=== PATIENT | male | born 1985 | race Hispanic/Latino ===

== ENCOUNTER 2018-05-06 20:12 | Inpatient (IN) | payer MEDICAID ==
[2018-05-06 20:26] VITALS: BMI 25.8
--- NOTE | 2018-05-06 20:56 | ED PDOC ---
HPI: Psych/Substance Abuse Time Seen by Provider: 05/06/18 20:42 Chief Complaint (Nursing): Substance Abuse Chief Complaint (Provider): psych eval History Per: Patient History/Exam Limitations: no limitations Onset/Duration Of Symptoms: Hrs (1.5) Suicide/Self Injury Attempted (Context): Ingestion Additional Complaint(s): 32 y/o male self-presents to ED for psychiatric evaluation. Patient states he has been feeling more depressed due to his current situation and tonight tried to commit suicide; states he took two 100mg Trazodone tablets at 19:30 and then was stopped by his friend before he could take more. Admits to previous attempts in past. Denies homicidal ideations, hallucinations, acute physical complaints. Noncompliant with psych meds. Past Medical History Reviewed: Historical Data, Nursing Documentation, Vital Signs Vital Signs: Last Vital Signs Temp 98.3 F 05/06/18 20:27 Pulse 82 05/06/18 20:27 Resp 19 05/06/18 20:27 BP 128/79 05/06/18 20:27 Pulse Ox 99 05/06/18 20:27 - Medical History PMH: Depression - Family History Family History: States: No Known Family Hx - Living Arrangements Living Arrangements: Alone - Social History Current smoker - smoking cessation education provided: Yes SMOKER/PACKS PER DAY:: 1 Alcohol: None Drugs: Prescription medications (suboxone) - Home Medications Home Medications: Ambulatory Orders Medication Instructions Recorded Sertraline [Zoloft] 1.5 tab PO DAILY 05/06/18 Trazodone HCl 100 mg PO HS 05/06/18 hydrOXYzine Pamoate [Vistaril] 50 mg PO DAILY 05/06/18 hydrOXYzine Pamoate [Vistaril] 50 mg PO Q8 PRN cap 05/13/18 - Allergies Allergies/Adverse Reactions: Allergies Allergy/AdvReac Type Severity Reaction Status Date / Time Iodine and Iodide Containing Allergy ANAPHYLAXIS Verified 05/06/18 20:35 Produc Review of Systems ROS Statement: Except As Marked, All Systems Reviewed And Found Negative Psych: Positive for: Depression, Suicidal ideation Physical Exam - Reviewed Nursing Documentation Reviewed: Yes Vital Signs Reviewed: Yes - Physical Exam Appears: Positive for: Well, Non-toxic, No Acute Distress Head Exam: Positive for: ATRAUMATIC, NORMAL INSPECTION, NORMOCEPHALIC Skin: Positive for: Normal Color Eye Exam: Positive for: Normal appearance ENT: Positive for: Normal ENT Inspection Cardiovascular/Chest: Positive for: Regular Rate, Rhythm Respiratory: Positive for: Normal Breath Sounds Gastrointestinal/Abdominal: Positive for: Normal Exam Back: Positive for: Normal Inspection Extremity: Positive for: Normal ROM Neurologic/Psych: Positive for: Alert, Oriented (x3) - Laboratory Results Result Diagrams: 05/06/18 21:45 05/08/18 06:10 - ECG ECG: Positive for: Viewed By Me (reviewed by ED attending) ECG Rhythm: Positive for: Sinus Rhythm, Premature Ventricular Contraction O2 Sat by Pulse Oximetry: 99 - Radiology X-Ray: Viewed By Me X-Ray Interpretation: No Acute Disease - Progress ED Course And Treament: 1:1, labs, crisis eval, poison control consult, ekg, chest xray RN spoke with Gregorio from poison control; who recommends repeat 4 hour ekg and LFTs and mag level. Supportive care as needed On re-eval, patient remains awake, resting comfortably; denies acute medical complaints 4 hour repeat EKG shows no changes. 4 hour repeat LFT, mag level show no changes. Patient evaluated by office worker; to be admitted to [facility] as per Dr. Rabago Medical Decision Making Medical Decision Making: Patient medically stable for psych admission Disposition - Clinical Impression Clinical Impression: Depression, Heroin abuse - Patient ED Disposition Is Patient to be Admitted: Yes - Disposition Disposition Time: 04:15 Condition: STABLE
[2018-05-06 21:50] LABS: BASO % 0.5 % (0.0-2.0); EOS # 0.3 K/uL (0.0-0.7); EOS % 3.5 % (0.0-4.0); HEMOGLOBIN 12.6 g/dL (12.0-18.0); LYMPH # 2.3 K/uL (1.0-4.3); LYMPH % 25.6 % (20.0-40.0); MEAN CELL VOLUME 92.4 fl (80.0-94.0); MEAN CORPUSCULAR HEMOGLOBIN 31.8 pg (27.0-31.0); MEAN CORPUSCULAR HGB CONC 34.5 g/dL (33.0-37.0); MEAN PLATELET VOLUME 8.9 fl (7.2-11.7); MONO # 0.8 K/uL (0.0-0.8); MONO % 8.7 % (0.0-10.0); NEUT # 5.5 K/uL (1.8-7.0); NEUT % 61.7 % (50.0-75.0); NRBC % 0.2 % (0.0-0.0); RBC 3.94 Mil/uL (4.40-5.90); RED CELL DISTRIBUTION WIDTH 14.4 % (11.5-14.5); WHITE BLOOD COUNT 8.8 K/uL (4.8-10.8)
[2018-05-06 22:18] LABS: ALB/GLOB RATIO 1.3 (1.0-2.1); ALBUMIN 3.9 g/dL (3.5-5.0); ALT/SGPT 105 U/L (21-72); AST/SGOT 74 U/L (17-59); BLOOD UREA NITROGEN 18 mg/dl (9-20); CALCIUM 9.4 mg/dL (8.4-10.2); GFR AFRICAN-AMERICAN > 60; GFR NON-AFRICAN AMERICAN > 60
[2018-05-06 22:23] LABS: ACETAMINOPHEN < 10.0 ug/ml (10.0-30.0); SALICYLATE < 1.0 mg/dl
[2018-05-06 23:46] VITALS: O2SAT 99
[2018-05-07 02:06] LABS: ALBUMIN 3.8 g/dL (3.5-5.0)
[2018-05-07 02:17] LABS: ALB/GLOB RATIO 1.3 (1.0-2.1)
[2018-05-07 04:21] LABS: URINE BILIRUBIN NEGATIVE (NEGATIVE); URINE BLOOD NEGATIVE (NEGATIVE); URINE CLARITY CLEAR (Clear); URINE COLOR STRAW (YELLOW); URINE GLUCOSE (UA) NEG (Normal); URINE LEUKOCYTE ESTERASE NEG Leu/uL (Negative); URINE PROTEIN NEGATIVE (NEGATIVE); URINE UROBILINOGEN 0.2-1.0 mg/dL (0.2-1.0)
[2018-05-07 04:41] LABS: BARBITURATES, UR NEGATIVE (NEGATIVE)
[2018-05-07 05:08] LABS: BENZODIAZEPINES, UR NEGATIVE (NEGATIVE); OPIATES, UR NEGATIVE (NEGATIVE); PHENCYCLIDINE, UR NEGATIVE (NEGATIVE)
[2018-05-07] MEDS ORDERED: Alum-Mag Hydrox-Simethicone Susp (30 mL) PO PRN (05:49)
[2018-05-07] MEDS ORDERED: Magnesium Hydroxide Susp 30 ml UD PO PRN (05:49)
[2018-05-07] MEDS ORDERED: DiphenhydrAMINE 50 mg/ml Inj IM PRN (05:49)
--- NOTE | 2018-05-07 06:11 | PCM.BM ---
<Joanna Mckeon - Last Filed: 05/07/18 06:09> Treatment Plan Problems - Problems identified on initial assessmt Hopelessness/Helplessness Date Initiated: 05/07/18 Time Initiated: 06:09 Assessment reference: NA Status: Active Feeling of Worthlessness Date Initiated: 05/07/18 Time Initiated: 06:10 Assessment reference: NA Status: Active Treatment assets and liabiliti Patient Assests: cooperative, ADL independent, physically healthy, negotiates basic needs, cognitively intact Patient Liabilities: live alone, poor support system, substance abuse - Milieu Protocol Maintain good personal hygiene: daily Encourage regular showers, daily Remind patient to perform daily oral care, daily Assist patient to perform ADL's Conduct patient checks and document Observation sheet: Q15 minutes Maintain personal safety: every shift Educate patient to report safety concerns to staff, every shift Monitor environment for contraband/sharps Medication safety: Monitor for expected outcome, potential side effects: every shift, Assess barriers to learning: every shift, Assess readiness for medication education: every shift <Eli Rabago - Last Filed: 05/07/18 08:40> - Diagnosis (1) Major depressive disorder Status: Acute Interventions: Medication management, Individual and group therapy, Psychoeducation 05/07/18 08:41 (2) Opioid use disorder Status: Acute Interventions: Medication management, Individual and group therapy, Psychoeducation 05/07/18 08:41 <Anoop Newman - Last Filed: 05/08/18 07:17> Family Contact Family involvement: Famliy/SO not involved Family contact: Patient declines to allow family contact at present Family contact name: Pt denied. Family contacted how many times per week?: 0 - Goals for Treatment Patient goals for treatment: Pt did not offer any goals at this time, except to get through the withdrawal of his Suboxone at this time. Discharge/Continuing Care - Education Needs Education Needs: Patient Medication, Patient Diagnosis/Disease Process, Patient Coping Skills, Patient Placement options, Patient Community resources, Patient Aftercare Safety Plan - Discharge Discharge Criteria: Tolerates medication w/o severe side effects, Free of Suicidal thoughts, Free of agitation, Normal sleep pattern, No longer exhibiting s/s of withdrawal, Reduction of target symptoms Discharge to:: Retirement - Treatment Team Participation Patient/Family/SO Statement: 07/19/18 07:17 Pt refused to attend treatment team stating that he was "too weak to walk." Discussed with Family/SO: No Was Patient/Family/SO present at Treatment Team Meeting: Yes
--- NOTE | 2018-05-07 08:47 | PCM.PSYCH ---
Initial Psychiatric Evaluation - Initial Psychiatric Evaluation Type of Admission: Voluntary Legal Status: Capacity Chief Complaint (in patient's own words): "I tried to kill myself." Patient's Reaction to Hospitalization: HPI: 32 yo male w/ h/o depression and opioid use disorder, recently treated with Suboxone, presents s/p attempted to overdose on Trazodone pills, states he took 2 pills but was stopped by a friend from taking more. He continues to report feeling depressed and hopeless w/ active suicidal ideation to kill himself by overdose. +Sleep/appetite disturbances. PPHx: H/o previous psychiatric admission at [facility], was prescribed Zoloft , Trazodone and Vistaril at that time; h/o outpatient psychiatric treatment, but can not recall the psychiatrist's name (Dr. Horowitz?); Last used heroin 1 month ago, recently prescribed Suboxone PMHx: Denies acute/chronic medical issues ALL: Iodine + Iodide containing products (causes seizures) FHx: Father w/ h/o depression SHx: Homeless, unemployed, smokes 1ppd, h/o opioid use disorder; no etoh Current Medications: Active Medications Generic Name Dose Route Start Last Admin Trade Name Freq PRN Reason Stop Dose Admin Acetaminophen 650 mg 05/07/18 05:49 Tylenol 325mg Tab PO Q4 PRN 4-7 pain Al Hydrox/Mg Hydrox/Simethicone 30 ml 05/07/18 05:49 Maalox Plus 30 Ml PO Q4 PRN Dyspepsia Clonidine HCl 0.1 mg 05/07/18 09:00 Catapres PO 05/10/18 01:00 Q8 THOMAS Diphenhydramine HCl 50 mg 05/07/18 05:49 Benadryl IM Q6 PRN Extrapyramidal S/S Unable PO Diphenhydramine HCl 50 mg 05/07/18 05:49 Benadryl PO Q6 PRN Extrapyramidal Symptoms Diphenhydramine HCl 50 mg 05/07/18 05:49 Benadryl PO HS PRN Sleep Haloperidol 5 mg 05/07/18 05:49 Haldol PO Q4 PRN Agitation Haloperidol Lactate 5 mg 05/07/18 05:49 Haldol IM Q4 PRN Agitation, Unable to Take PO Ibuprofen 400 mg 05/07/18 08:40 Motrin Tab PO Q6 PRN Pain, moderate (4-7) Loperamide HCl 2 mg 05/07/18 08:25 Imodium PO QID PRN Diarrhea Lorazepam 1 mg 05/07/18 05:49 Ativan IM Q8 PRN Agitation Lorazepam 1 mg 05/07/18 05:49 Ativan PO Q8 PRN Agitation Magnesium Hydroxide 30 ml 05/07/18 05:49 Milk Of Magnesia PO HS PRN Constipation Nicotine 1 patch 05/07/18 09:00 Nicoderm Cq TD DAILY [facility] Ondansetron HCl 4 mg 05/07/18 08:25 Zofran Tab PO Q4 PRN Nausea/Vomiting Sertraline HCl 100 mg 05/07/18 09:00 Zoloft PO DAILY [facility] Past Psychiatric History - Past Psychiatric History Previous Treatment History: Inpatient Pertinent Medical Hx (Current Medical&Sleep Prob, Allergies): Allergies Allergy/AdvReac Type Severity Reaction Status Date / Time Iodine and Iodide Containing Allergy ANAPHYLAXIS Verified 05/06/18 20:35 Produc Sertraline [Zoloft] 1.5 tab PO DAILY 05/06/18 Trazodone HCl [Trazodone HCl] 100 mg PO HS 05/06/18 hydrOXYzine Pamoate [Vistaril] 50 mg PO DAILY 05/06/18 Review of Systems - Psychiatric Psychiatric: As Per HPI, Abnormal Sleep Pattern, Anhedonia, Anxiety, Change in Appetite, Depression, Difficulty Concentrating, Hopelessness, Mood Swings, Suicidal Ideation Mental Status Examination - Personal Presentation Personal Presentation: Looks stated age - Affect Affect: Constricted - Motor Activity Motor Activity: Calm - Reliability in Providing Information Reliability in Providing Information: Fair - Speech Speech: Organized - Mood Mood: Depressed - Formal Thought Process Formal Thought Process: No Impairment - Hallucinations/Delusions Additional comments: NO AH/VH/paranoia/delusions - Obsessions/Compulsions Obsessions: No Compulsions: No - Cognitive Functions Orientation: Person, Place, Situation, Time Sensorium: Alert Attention/Concentration: Attentive Estimate of Intelligence: Average Judgement: Intact, as evidence by: Insight regarding need for hospitalization Memory: Recent intact, as evidence by: Ability to recall events of the day, Remote intact, as evidenced by: Abilit to recall sig. life events, Remote intact , as evidenced by: Ability to recall historical events - Risk Risk: Suicidal, Diminished functioning - Strength & Assets Inventory Strength & Assets Inventory: Cooperative - Limitations Limitations: Other (Homelessness; Poverty) DSM 5 DX - DSM 5 DSM 5 Diagnosis: Major Depressive Disorder; Opioid Use Disorder - Recommended/Plan of Treatment Treatment Recommendations and Plan of Treatment: Major Depressive Disorder; Opioid Use Disorder -Admit to psychiatry unit -Medicine consult -Individual and group therapy -Increase Zoloft to 100 mg PO Daily -Nicotine patch -PRNs for opioid withdrawal symptoms (Clonidine, Zofran, Ibuprofen, Ativan, Immodium) -Disposition planning Projected ELOS: 5-9 days Discharge Plan and Discharge Criteria: Discharge when patient is psychiatrically stable - Smoking Cessation Smoking Cessation Initiated: Yes
[2018-05-07 09:30] LABS: T4 5.43 ug/dl (5.5-11.0)
--- NOTE | 2018-05-07 11:28 | RAD ---
Date of service: 05/07/2018 HISTORY: admit COMPARISON: No prior. FINDINGS: LUNGS: No active pulmonary disease. PLEURA: No significant pleural effusion identified, no pneumothorax apparent. CARDIOVASCULAR: Normal. OSSEOUS STRUCTURES: No significant abnormalities. VISUALIZED UPPER ABDOMEN: Normal. OTHER FINDINGS: None. IMPRESSION: No active disease.
--- NOTE | 2018-05-07 17:25 | CP.PCM.CON ---
History of Present Illness - History of Present Illness History of Present Illness: Medical consult for psychiatric admission. CC: depression and suicidal attempt HPI: 32 yo WM no PMH here for depression, suicidal ideation and attempt now under management by psych. Overdose of trazadone. Denies cp, sob, fever, chills, abd pain. PMH: none PSH: none FH: none for medical issues, positive for dad depression Social history reviewed: smokes 1ppd, drugs abused opioids Heroin IV was on suboxone, denies alcohol Allergies: iodine Meds: none for medical issues. Review of Systems - Review of Systems All systems: reviewed and no additional remarkable complaints except Review of Systems: except HPI Past Patient History - Past Social History Smoking Status: Heavy Smoker > 10 Cigarettes Daily Alcohol: None Drugs: Prescription medications (suboxone) - CARDIAC Hx Cardiac Disorders: No - PULMONARY Hx Tuberculosis: No - NEUROLOGICAL HX Cerebrovascular Accident: No Hx Seizures: No - HEMATOLOGICAL/ONCOLOGICAL Hx Cancer: No Hx Human Immunodeficiency Virus (HIV): No - GENITOURINARY/GYNECOLOGICAL Hx Sexually Transmitted Disorders: No - PSYCHIATRIC Hx Substance Use: Yes - SURGICAL HISTORY Hx Musculoskeletal Surgery: Yes Meds Allergies/Adverse Reactions: Allergies Allergy/AdvReac Type Severity Reaction Status Date / Time Iodine and Iodide Containing Allergy ANAPHYLAXIS Verified 05/06/18 20:35 Produc - Medications Medications: Current Medications Acetaminophen (Tylenol 325mg Tab) 650 mg PO Q4 PRN PRN Reason: 4-7 pain Al Hydrox/Mg Hydrox/Simethicone (Maalox Plus 30 Ml) 30 ml PO Q4 PRN PRN Reason: Dyspepsia Clonidine HCl (Catapres) 0.1 mg PO Q8 THOMAS Stop: 05/10/18 01:00 Last Admin: 05/07/18 17:20 Dose: 0.1 mg Diphenhydramine HCl (Benadryl) 50 mg IM Q6 PRN PRN Reason: Extrapyramidal S/S Unable PO Diphenhydramine HCl (Benadryl) 50 mg PO Q6 PRN PRN Reason: Extrapyramidal Symptoms Diphenhydramine HCl (Benadryl) 50 mg PO HS PRN PRN Reason: Sleep Haloperidol (Haldol) 5 mg PO Q4 PRN PRN Reason: Agitation Haloperidol Lactate (Haldol) 5 mg IM Q4 PRN PRN Reason: Agitation, Unable to Take PO Ibuprofen (Motrin Tab) 400 mg PO Q6 PRN PRN Reason: Pain, moderate (4-7) Loperamide HCl (Imodium) 2 mg PO QID PRN PRN Reason: Diarrhea Lorazepam (Ativan) 1 mg IM Q8 PRN PRN Reason: Agitation Lorazepam (Ativan) 1 mg PO Q8 PRN PRN Reason: Agitation Last Admin: 05/07/18 14:01 Dose: 1 mg Magnesium Hydroxide (Milk Of Magnesia) 30 ml PO HS PRN PRN Reason: Constipation Nicotine (Nicoderm Cq) 1 patch TD DAILY [facility] Last Admin: 05/07/18 09:27 Dose: 1 patch Ondansetron HCl (Zofran Tab) 4 mg PO Q4 PRN PRN Reason: Nausea/Vomiting Sertraline HCl (Zoloft) 100 mg PO DAILY [facility] Last Admin: 05/07/18 09:28 Dose: 100 mg Physical Exam - Constitutional Appears: Well, Non-toxic, No Acute Distress - Head Exam Head Exam: ATRAUMATIC, NORMAL INSPECTION, NORMOCEPHALIC - Eye Exam Eye Exam: Normal appearance Pupil Exam: NORMAL ACCOMODATION - ENT Exam ENT Exam: Mucous Membranes Dry - Respiratory Exam Respiratory Exam: Clear to Auscultation Bilateral, NORMAL BREATHING PATTERN. absent: Rales, Rhonchi, Wheezes - Cardiovascular Exam Cardiovascular Exam: REGULAR RHYTHM, +S1, +S2. absent: Systolic Murmur - GI/Abdominal Exam GI & Abdominal Exam: Normal Bowel Sounds, Soft. absent: Organomegaly, Rebound, Tenderness - Extremities Exam Extremities exam: Positive for: normal inspection - Neurological Exam Neurological exam: Alert Additional comments: sleeping in bed easily awakened does not want to talk answers questions appropriately - Psychiatric Exam Psychiatric exam: Depressed - Skin Skin Exam: Normal Color Results - Vital Signs Recent Vital Signs: Last Vital Signs Temp 96.6 F L 05/07/18 16:24 Pulse 58 L 05/07/18 17:20 Resp 20 05/07/18 16:24 BP 108/59 L 05/07/18 17:20 Pulse Ox 99 05/07/18 05:19 - Labs Result Diagrams: 05/06/18 21:45 05/06/18 21:45 Labs: Laboratory Results - last 24 hr 05/06/18 05/06/18 05/06/18 21:45 21:45 21:45 WBC 8.8 RBC 3.94 L Hgb 12.6 Hct 36.4 MCV 92.4 MCH 31.8 H MCHC 34.5 RDW 14.4 Plt Count 195 MPV 8.9 Neut % (Auto) 61.7 Lymph % (Auto) 25.6 [place] % (Auto) 8.7 Eos % (Auto) 3.5 Baso % (Auto) 0.5 Neut # (Auto) 5.5 Lymph # (Auto) 2.3 [place] # (Auto) 0.8 Eos # (Auto) 0.3 Baso # (Auto) 0.0 Sodium 140 Potassium 4.2 Chloride 100 Carbon Dioxide 28 Anion Gap 16 BUN 18 Creatinine 0.9 Est GFR ( Amer) > 60 Est GFR (Non-Af Amer) > 60 Random Glucose 108 Hemoglobin A1c Calcium 9.4 Magnesium Total Bilirubin 0.3 Direct Bilirubin AST 74 H ALT 105 H Alkaline Phosphatase 74 Total Protein 6.9 Albumin 3.9 Globulin 2.9 Albumin/Globulin Ratio 1.3 Triglycerides Cholesterol LDL Cholesterol Direct HDL Cholesterol Thyroxine (T4) TSH 3rd Generation Urine Color Urine Clarity Urine pH Ur Specific [place] Urine Protein Urine Glucose (UA) Urine Ketones Urine Blood Urine Nitrate Urine Bilirubin Urine Urobilinogen Ur Leukocyte Esterase Urine RBC (Auto) Urine Microscopic WBC Salicylates < 1.0 Urine Opiates Screen Urine Methadone Screen Acetaminophen < 10.0 L Ur Barbiturates Screen Ur Phencyclidine Scrn Ur Amphetamines Screen U Benzodiazepines Scrn U Oth Cocaine Metabols U Cannabinoids Screen Alcohol, Quantitative < 10 RPR 05/07/18 05/07/18 05/07/18 01:35 04:00 04:00 WBC RBC Hgb Hct MCV MCH MCHC RDW Plt Count MPV Neut % (Auto) Lymph % (Auto) [place] % (Auto) Eos % (Auto) Baso % (Auto) Neut # (Auto) Lymph # (Auto) [place] # (Auto) Eos # (Auto) Baso # (Auto) Sodium Potassium Chloride Carbon Dioxide Anion Gap BUN Creatinine Est GFR ( Amer) Est GFR (Non-Af Amer) Random Glucose Hemoglobin A1c Calcium Magnesium 1.9 Total Bilirubin 0.4 Direct Bilirubin 0.0 AST 72 H ALT 101 H Alkaline Phosphatase 71 Total Protein 6.7 Albumin 3.8 Globulin 2.9 Albumin/Globulin Ratio 1.3 Triglycerides Cholesterol LDL Cholesterol Direct HDL Cholesterol Thyroxine (T4) TSH 3rd Generation Urine Color Straw Urine Clarity Clear Urine pH 6.0 Ur Specific [place] 1.012 Urine Protein Negative Urine Glucose (UA) Neg Urine Ketones Negative Urine Blood Negative Urine Nitrate Negative Urine Bilirubin Negative Urine Urobilinogen 0.2-1.0 Ur Leukocyte Esterase Neg Urine RBC (Auto) < 1 Urine Microscopic WBC < 1 Salicylates Urine Opiates Screen Negative Urine Methadone Screen Negative Acetaminophen Ur Barbiturates Screen Negative Ur Phencyclidine Scrn Negative Ur Amphetamines Screen Negative U Benzodiazepines Scrn Negative U Oth Cocaine Metabols Negative U Cannabinoids Screen Negative Alcohol, Quantitative RPR 05/07/18 05/07/18 05/07/18 08:10 08:10 08:10 WBC RBC Hgb Hct MCV MCH MCHC RDW Plt Count MPV Neut % (Auto) Lymph % (Auto) [place] % (Auto) Eos % (Auto) Baso % (Auto) Neut # (Auto) Lymph # (Auto) [place] # (Auto) Eos # (Auto) Baso # (Auto) Sodium Potassium Chloride Carbon Dioxide Anion Gap BUN Creatinine Est GFR ( Amer) Est GFR (Non-Af Amer) Random Glucose Hemoglobin A1c 5.1 Calcium Magnesium Total Bilirubin Direct Bilirubin AST ALT Alkaline Phosphatase Total Protein Albumin Globulin Albumin/Globulin Ratio Triglycerides 268 H Cholesterol 159 LDL Cholesterol Direct 59 HDL Cholesterol 32 Thyroxine (T4) 5.43 L TSH 3rd Generation 2.43 Urine Color Urine Clarity Urine pH Ur Specific [place] Urine Protein Urine Glucose (UA) Urine Ketones Urine Blood Urine Nitrate Urine Bilirubin Urine Urobilinogen Ur Leukocyte Esterase Urine RBC (Auto) Urine Microscopic WBC Salicylates Urine Opiates Screen Urine Methadone Screen Acetaminophen Ur Barbiturates Screen Ur Phencyclidine Scrn Ur Amphetamines Screen U Benzodiazepines Scrn U Oth Cocaine Metabols U Cannabinoids Screen Alcohol, Quantitative RPR Nonreactive Assessment & Plan - Assessment and Plan (Free Text) Assessment: 32 yo with no PMH here for psychiatric condition depression, suicidal attempt with trazadone. 1. Elevated LFT's - due to meds overdose attempt likely check hep profile with history of drug use IV monitor LFT's to resolution 2. Depression management by psych 3. Opioid abuse - management by psych
[2018-05-08 06:54] LABS: ALB/GLOB RATIO 1.3 (1.0-2.1); ALBUMIN 3.9 g/dL (3.5-5.0); ALT/SGPT 149 U/L (21-72); AST/SGOT 82 U/L (17-59); BLOOD UREA NITROGEN 19 mg/dl (9-20); CALCIUM 9.1 mg/dL (8.4-10.2); GFR AFRICAN-AMERICAN > 60; GFR NON-AFRICAN AMERICAN > 60
--- NOTE | 2018-05-08 09:33 | PCM.PYCHPN ---
Psychiatric Progress Note - Psychiatric Progress Note Patient seen today, length of contact: Patient evaluated, case discussed with team, chart reviewed Patient Chief Complaint: "I tried to kill myself." Problems Identified/Issues Discussed: Patient reports that he feels depressed and suicidal w/o any plan. He now reports auditory hallucinations telling him to kill himself. NO VH/HI. +Poor sleep/appetite. Medication Change: Yes (Start Risperdal 0.5 mg PO HS) Medical Record Reviewed: Yes Consults ordered or reviewed: Medicine consult Mental Status Examination - Cognitive Function Orientation: Person, Place, Situation, Time Memory: Intact Attention: WNL Concentration: WNL Association: WNL Fund of Knowledge: [facility] Decription of patient's judgement and insights: Poor I/J - Mood Mood: Depressed - Affect Affect: Constricted - Formal Thought Process Formal Thought Process: No Impairment Psychotic Thoughts and Behaviors: No AH/VH/paranoia/delusions - Suicidal Ideation Suicidal Ideation: Yes Plan: no current plan - Homicidal Ideation Homicidal Ideation: No Goal/Treatment Plan - Goal/Treatment Plan Need for Continued Stay: Remain at risks for inpatient hospitalization, Severe depression anxiety, Discharge may exacerbated symptoms Progress Toward Problem(s) and Goals/Treatment Plan: Major Depressive Disorder w/ Psychotic Features vs Substance Induced Mood/ Psychotic Disorder; Opioid Use Disorder -Medicine consult -Individual and group therapy -Continue Zoloft 100 mg PO Daily -Start Risperdal 0.5 mg POHS -Nicotine patch -PRNs for opioid withdrawal symptoms -Disposition planning Estimated Date of D/C: 05/13/18
--- NOTE | 2018-05-08 15:25 | CARD ---
APPROVED REPORT Date of service: 05/07/2018 EKG Measurement Heart [id number] MD [id number] <Conclusion> Sinus bradycardia Incomplete right bundle branch block Borderline ECG
--- NOTE | 2018-05-08 15:26 | CARD ---
APPROVED REPORT Date of service: 05/06/2018 EKG Measurement Heart [id number] CT [id number] <Conclusion> Sinus rhythm with occasional ventricular-paced complexes and premature supraventricular complexes Incomplete right bundle branch block Abnormal ECG
[2018-05-08 16:14] LABS: HEPATITIS B SURFACE AG Negative (NEGATIVE)
[2018-05-08 16:20] LABS: HEPATITIS A IGM NEGATIVE (NEGATIVE); HEPATITIS B CORE AB NEGATIVE (NEGATIVE)
[2018-05-08 16:32] LABS: HEPATITIS C ANTIBODY NEGATIVE (NEGATIVE)
--- NOTE | 2018-05-08 19:43 | PCM.RRT ---
I.Reason for [facility] - A) Acute Change in Patient: (Select all that apply): Acute change in mental status - Neurological Status (Select all that apply): Confused Other (Please specify): Tremulous - Constitutional Appears: Confused - Head Head Exam: ATRAUMATIC, NORMAL INSPECTION - Eyes Eye Exam: PERRL. absent: Conjunctival injection, Scleral icterus - Respiratory Exam Respiratory Exam: Clear to Ausculation Bilateral, NORMAL BREATHING PATTERN. absent: Decreased Breath Sounds, Rales, Rhonchi, Wheezes - Cardiovascular Exam Cardiovascular Exam: REGULAR RHYTHM - GI/Abdominal Exam GI & Abdominal Exam: Soft, Normal Bowel Sounds. absent: Distended, Tenderness - Neurological Exam Neurological Exam: Alert, Awake. absent: Oriented x3 (confused. Having difficulty remembering his full name) Additional exam: Drowsy. Tremulous - Extremities Exam Extremities Exam: Full ROM. absent: Calf Tenderness Plan - Assessment of Findings&Treatment Plan 32 y/o M with Hx of heroin abuse and depression admitted for depression with suicidal ideation is called [facility] after the nurse found him in bed unresponsive and tremulous. When we arrived to examine patient his mental status was improved , he was responding to verbal commands but was having difficulty saying his full name. Patient had episodes of tremor/shakiness during the encounter. As per nurse patient had similar episode last night when he was found in the floor. Unknown if fell. Syncope/AMS Acute Questionable fall last night R/O ICH CT head W/O contrast ordered STAT Ativan 1 mg IM once PRN dose of PO and IM ativan frequency increased. Patient to stay on Psych unit for opioid withdrawal/depression management for now.
--- NOTE | 2018-05-09 10:01 | PCM.PYCHPN ---
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 He does not recall what happened but states that he was diagnosed w/ a seizure disorder in the past, was prescribed medication (does not recall the name), but has not been compliant with treatment. Patient reports that he continues to feel depressed and suicidal w/o any plan. He continues to have AH telling him to kill himself. +Hopelessness +Anhdenoia +Low motivation. NO VH/HI. +Poor sleep/appetite. Medication Change: No Medical Record Reviewed: Yes Consults ordered or reviewed: Medicine consult; Neurology consult ordered Mental Status Examination - Cognitive Function Orientation: Person, Place, Situation, Time Memory: Intact Attention: WNL Concentration: WNL Association: WNL Fund of Knowledge: WNL Decription of patient's judgement and insights: Poor I/J - Mood Mood: Depressed - Affect Affect: Constricted - Formal Thought Process Formal Thought Process: No Impairment Psychotic Thoughts and Behaviors: No AH/VH/paranoia/delusions - Suicidal Ideation Suicidal Ideation: Yes - Homicidal Ideation Homicidal Ideation: No Goal/Treatment Plan - Goal/Treatment Plan Need for Continued Stay: Remain at risks for inpatient hospitalization, Severe depression anxiety, Discharge may exacerbated symptoms Progress Toward Problem(s) and Goals/Treatment Plan: 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
--- NOTE | 2018-05-09 10:36 | CT ---
Date of service: 05/08/2018 PROCEDURE: CT HEAD WITHOUT CONTRAST. HISTORY: R/O ICH COMPARISON: None available. TECHNIQUE: Axial computed tomography images were obtained through the head/brain without intravenous contrast. Radiation dose: Total exam DLP = 792.28 mGy-cm. This CT exam was performed using one or more of the following dose reduction techniques: Automated exposure control, adjustment of the mA and/or kV according to patient size, and/or use of iterative reconstruction technique. FINDINGS: HEMORRHAGE: No intracranial hemorrhage. BRAIN: King-white matter differentiation is preserved. There is no mass, mass effect or abnormal extra-axial fluid collection. There is no territorial infarction. The midline sagittal structures are normal. VENTRICLES: The ventricles are normal in size, shape and configuration. CALVARIUM: There is no calvarial fracture or extracranial soft tissue swelling. PARANASAL SINUSES: Predominantly clear. MASTOID AIR CELLS: Predominantly clear. OTHER FINDINGS: None. IMPRESSION: No acute intracranial abnormality.
--- NOTE | 2018-05-09 13:09 | CP.PCM.CON ---
History of Present Illness - History of Present Illness History of Present Illness: Neurology Consultation Note: Mr. Navarro is a 32-year-old man with a past medical history of depression, who attempted suicide with trazodone (took 200 mg, and was stopped by a friend prior to taking more), who is admitted to the psychiatry unit for management and had a seizure-like episode last night as well as another one afterward in CT scan. Both episodes were about 2 minutes long and afterward, he returned to baseline mental function without residual post-ictal state. There was no urinary/bowel incontinence. When I arrived to see the patient, and introduced myself outside his room, he started to have one of these events. What I witnessed is the following: he initially had only bilateral lower extremity shaking/twitching in an non- rhythmic fashion. His left arm then started to shake in a rhythmic manner. His eyes rolled back and he was not responsive. I attempted to hold his arms up and let them go, but he would consistently avoid his face. He woke up without any post-ictal state and answered questions appropriately. He told me that these events happen due to withdrawal from Suboxone. Review of Systems - Review of Systems All systems: reviewed and no additional remarkable complaints except Past Patient History - Past Social History Smoking Status: Heavy Smoker > 10 Cigarettes Daily Alcohol: None Drugs: Prescription medications (suboxone) - CARDIAC Hx Cardiac Disorders: No - PULMONARY Hx Tuberculosis: No - NEUROLOGICAL HX Cerebrovascular Accident: No Hx Seizures: No - HEMATOLOGICAL/ONCOLOGICAL Hx Cancer: No Hx Human Immunodeficiency Virus (HIV): No - GENITOURINARY/GYNECOLOGICAL Hx Sexually Transmitted Disorders: No - PSYCHIATRIC Hx Substance Use: Yes - SURGICAL HISTORY Hx Musculoskeletal Surgery: Yes Meds Allergies/Adverse Reactions: Allergies Allergy/AdvReac Type Severity Reaction Status Date / Time Iodine and Iodide Containing Allergy ANAPHYLAXIS Verified 05/06/18 20:35 Produc - Medications Medications: Current Medications Acetaminophen (Tylenol 325mg Tab) 650 mg PO Q4 PRN PRN Reason: 4-7 pain Last Admin: 05/09/18 08:25 Dose: 650 mg Al Hydrox/Mg Hydrox/Simethicone (Maalox Plus 30 Ml) 30 ml PO Q4 PRN PRN Reason: Dyspepsia Diphenhydramine HCl (Benadryl) 50 mg IM Q6 PRN PRN Reason: Extrapyramidal S/S Unable PO Diphenhydramine HCl (Benadryl) 50 mg PO Q6 PRN PRN Reason: Extrapyramidal Symptoms Diphenhydramine HCl (Benadryl) 50 mg PO HS PRN PRN Reason: Sleep Haloperidol (Haldol) 5 mg PO Q4 PRN PRN Reason: Agitation Haloperidol Lactate (Haldol) 5 mg IM Q4 PRN PRN Reason: Agitation, Unable to Take PO Ibuprofen (Motrin Tab) 400 mg PO Q6 PRN PRN Reason: Pain, moderate (4-7) Last Admin: 05/08/18 09:35 Dose: 400 mg Loperamide HCl (Imodium) 2 mg PO QID PRN PRN Reason: Diarrhea Lorazepam (Ativan) 0.5 mg PO Q8 PRN PRN Reason: Anxiety Last Admin: 05/09/18 09:58 Dose: 0.5 mg Lorazepam (Ativan) 1 mg IM Q6H PRN PRN Reason: Seizure activity Magnesium Hydroxide (Milk Of Magnesia) 30 ml PO HS PRN PRN Reason: Constipation Nicotine (Nicoderm Cq) 1 patch TD DAILY [facility] Last Admin: 05/09/18 08:26 Dose: 1 patch Ondansetron HCl (Zofran Tab) 4 mg PO Q4 PRN PRN Reason: Nausea/Vomiting Risperidone (Risperdal Tab) 0.5 mg PO HS [facility] Last Admin: 05/08/18 22:34 Dose: 0.5 mg Sertraline HCl (Zoloft) 100 mg PO DAILY [facility] Last Admin: 05/09/18 08:27 Dose: 100 mg Physical Exam - Neurological Exam Neurological exam: Alert, CN II-XII Intact, Normal Gait, Oriented x3, Reflexes Normal Results - Vital Signs Recent Vital Signs: Last Vital Signs Temp 97.3 F L 05/09/18 06:00 Pulse 77 05/09/18 06:00 Resp 20 05/09/18 06:00 BP 107/66 05/09/18 06:00 Pulse Ox 99 05/07/18 05:19 - Labs Result Diagrams: 05/06/18 21:45 05/08/18 06:10 Labs: Laboratory Results - last 24 hr 05/08/18 06:24 Hepatitis A IgM Ab Negative Hep Bs Antigen Negative Hep B Core IgM Ab Negative Hepatitis C Antibody Negative Assessment & Plan (1) Pseudoseizure Assessment and Plan: CT scan of the head is normal. Will obtain EEG to confirm. Continue psychiatric plan. Thank you. Status: Acute Priority: Medium
--- NOTE | 2018-05-10 10:07 | PCM.PYCHPN ---
Psychiatric Progress Note - Psychiatric Progress Note Patient seen today, length of contact: Patient evaluated, case discussed with team, chart reviewed Patient Chief Complaint: pt has remained very anxious and labile and remains with nonepileptic involuntary movements and pt was seen by dr washington ,neurology and scheduled for EEG on saturday Medication Change: No Medical Record Reviewed: Yes Mental Status Examination - Cognitive Function Orientation: Person, Place, Situation, Time Memory: Intact Attention: WNL Concentration: WNL Association: WNL Fund of Knowledge: WNL - Mood Mood: Depressed - Affect Affect: Constricted - Formal Thought Process Formal Thought Process: No Impairment - Suicidal Ideation Suicidal Ideation: Yes - Homicidal Ideation Homicidal Ideation: No Goal/Treatment Plan - Goal/Treatment Plan Need for Continued Stay: Remain at risks for inpatient hospitalization, Severe depression anxiety, Discharge may exacerbated symptoms Estimated Date of D/C: 05/13/18
--- NOTE | 2018-05-11 14:30 | PCM.PYCHPN ---
Psychiatric Progress Note - Psychiatric Progress Note Patient seen today, length of contact: Patient evaluated, case discussed with team, chart reviewed Patient Chief Complaint: when i went to the patient pt had his face covered with bedsheet and making gurgling sounds and did not respond when i called his name and i imediately called RN to call rapid response while took the bedsheet off his face and found him with another bedsheet tightened around his neck which i immediately untied with the help of RN and airway was cleared and pt has been breathing normally with vitals as BP is 166/83,pulse is 122 and pulse ox was 97% and dr awad and dr tellez arrived and pt was evaluated and advised to stay on unit and being closely monitored.pt says that he did not want to live and is in pain and wants to leave this hospital and transferred out as pt is demanding suboxen and cant be prescrribed here.According to dr awad pt is having nonepileptic movements are not seizure activity.pt c/o pain in the back and abdomen xray was sheduled .pt placed on 1:1 observation. for suicidal risk. Medication Change: No Medical Record Reviewed: Yes Mental Status Examination - Cognitive Function Orientation: Person, Place, Situation, Time Memory: Intact Attention: WNL Concentration: WNL Association: WNL Fund of Knowledge: WNL - Mood Mood: Depressed - Affect Affect: Constricted - Formal Thought Process Formal Thought Process: No Impairment - Suicidal Ideation Suicidal Ideation: Yes - Homicidal Ideation Homicidal Ideation: No Goal/Treatment Plan - Goal/Treatment Plan Need for Continued Stay: Remain at risks for inpatient hospitalization, Severe depression anxiety, Discharge may exacerbated symptoms Progress Toward Problem(s) and Goals/Treatment Plan: Will place pt on 1;1 observation. As pt has requested 48 hr letter and made a suicidal gesture pt has been referred to [facility] for screening for involuntary comittment. Will continue to titrate the meds as needed and discussed the meds with dr awad and she is agreeable to m,eds and will follow up as needed , EEG in am and neuro follow up. Estimated Date of D/C: 05/13/18
--- NOTE | 2018-05-11 16:09 | PCM.RRT ---
<Skip Osborne - Last Filed: 05/11/18 16:10> [address] [employer]EL[employer] Nurse Assessment - Situation [facility] [address] [employer] Responder Arrival Time: 02:40 Location: 3ns Room Number: [address] [employer] Reason for Call: Looks Sicker [address] [address] [employer] Called By: RN - IV IV Inserted during [facility] [address] SQL DEVELOPER?: No New IV Insertion Tolerance:: Excellent - Respiratory Oxygen Delivery Method: Room Air Received Nebulizer Treatments: No Was the Patient Ventilated with Bag/Mask 100% O2?: No Secretions Suctioned?: No Was the Patient Intubated?: No Was the Patient Placed on a Ventilator?: No - Medication Medications Administered During [address] [address] [employer]ELOPER: ativan 1 mg im stat - Diagnostic Test Ordered EKG: No Chest X-Ray: No CT Scan: No CPR started during [address] [address] SQL DEVELOPER?: No - Vital Signs Vital Signs: Rapid Response Vital Sign Blood Pressure 166/83 Pulse Rate 122 Respiratory Rate 20 Temperature 98.6 F Oxygen Saturation 97 - Time [facility] [address] [employer] Ended Time [address] [address] [employer]ELOPER Ended: 14:50 - Vital Signs at end of [address] [address] [employer]EL[employer] Vital Signs at end of [facility] [address] [employer] DEVELOPER: Rapid Response End Vital Sign Blood Pressure 158/94 Pulse Rate 109 Respiratory Rate 20 Temperature 98.6 F O2 Sat by Pulse Oximetry 95 - Recommendations [address] [address] [employer] Level of Care Recommendations: Remain in current setting I.Reason for [address] [employer] - A) Acute Change in Patient: (Select all that apply): Staff member or family is worried about patient Subjective: This is a 32 yo man with a PMH of depression, who attempted suicide with trazodone. Was admitted to psych for suicidal attempt. [address] [address] [employer] was called due to pt strangulate himself with a bed sheet. Pulse sucks was done it was temp 98.6, pulse 104, bp 158/94, ox2 97% PT will be placed 1 to 1 for suicidal risk pt remain on psych to continue treatment for suicide attempt Monitor for acute changes Final vitals Temp 98.6, pulse 122, BP166/83, Ox2 97% [address] [address] [employer]ELOPER was over at 2:50 - Neurological Status (Select all that apply): Alert, Responsive, Verbal - Respiratory Oxygen Delivery Method: Room Air - Head Head Exam: ATRAUMATIC, NORMAL INSPECTION, NORMOCEPHALIC - Eyes Eye Exam: EOMI, Normal appearance, PERRL - Respiratory Exam Respiratory Exam: Clear to Ausculation Bilateral, NORMAL BREATHING PATTERN - Cardiovascular Exam Cardiovascular Exam: REGULAR RHYTHM, +S1, +S2 - GI/Abdominal Exam GI & Abdominal Exam: Soft, Normal Bowel Sounds - Neurological Exam Neurological Exam: Altered - Extremities Exam Extremities Exam: Full ROM, Normal Capillary Refill, Normal Inspection Plan - Assessment of Findings&Treatment Plan This is a 32 yo man with a PMH of depression, who attempted suicide with trazodone. Was admitted to psych for suicidal attempt. [address] [address] [employer]ELOPER was called due to pt strangulate himself with a bed sheet. Plan 1 to 1 for suicidal risk Monitor for acute changes <Pradeep Breen - Last Filed: 05/11/18 16:57> [address] [employer] DEVEL[employer] Nurse Assessment - Vital Signs Vital Signs: Rapid Response Vital Sign Blood Pressure 166/83 Pulse Rate 122 Respiratory Rate 20 Temperature 98.6 F Oxygen Saturation 97 - Vital Signs at end of [address] [address] [employer]ELOPER Vital Signs at end of [address] [employer] DEVELOPER: Rapid Response End Vital Sign Blood Pressure 158/94 Pulse Rate 109 Respiratory Rate 20 Temperature 98.6 F O2 Sat by Pulse Oximetry 95
[2018-05-12 05:54] VITALS: RESP 18
--- NOTE | 2018-05-12 11:35 | PCM.PYCHPN ---
Psychiatric Progress Note - Psychiatric Progress Note Patient seen today, length of contact: Patient evaluated, case discussed with team, chart reviewed Patient Chief Complaint: I have nothing to live for I need to Problems Identified/Issues Discussed: pt evaluated, presenting with dysphoric depressed mood expressing active suicidal ideation and intent reporting he has nothing to live for, unable to see his two children and abandoned by his family , feeling hopeless and helpless about his current situation, with financial difficulties and poor social support , pt expressing desire to stating he intends to end his life if he can ,pt yesterday had active suicidal attempt on the unit attempting to hang himself with a sheet brief therapy provided ,discused with pt starting trileptal patient continues to refuse medications, also signed 48hour notice requesting to be discharged DSM 5 Symptoms Update: substance induced mood disorder opiate use severe continuous depression Medication Change: Yes (start trileptal) Medical Record Reviewed: Yes Mental Status Examination - Cognitive Function Orientation: Person, Place, Situation, Time Memory: Intact Attention: WNL Concentration: Poor Association: WNL Fund of Knowledge: WNL Decription of patient's judgement and insights: partial insight , poor judgment and poor impulse control - Mood Mood: Depressed, Anxious - Affect Affect: Constricted - Speech Speech: Soft - Formal Thought Process Formal Thought Process: No Impairment, Circumstantial Psychotic Thoughts and Behaviors: pt denied any current psychotic symptoms, non elicited - Suicidal Ideation Suicidal Ideation: Yes - Homicidal Ideation Homicidal Ideation: No Goal/Treatment Plan - Goal/Treatment Plan Need for Continued Stay: Remain at risks for inpatient hospitalization, Severe depression anxiety, Discharge may exacerbated symptoms Progress Toward Problem(s) and Goals/Treatment Plan: pt continues to express active suicidal ideation and intent, had active suicidal attempt trying to hang himself on the unit will continue 1:1 observation for suicide risk pt refusing medications, signed 48 hour notice requesting to be discharged , pt will be referred to be screened for involuntary admission as he continues to have high suicide risk will start trileptal for mood stabilization continue with group, CBT and motivational therapy Estimated Date of D/C: 05/16/18
[2018-05-13 09:13] VITALS: BP 134/89; PULSE 75; TEMP 97.9
--- NOTE | 2018-05-13 11:21 | PCM.PYCHPN ---
Psychiatric Progress Note - Psychiatric Progress Note Patient seen today, length of contact: Patient evaluated, case discussed with team, chart reviewed Patient Chief Complaint: I want to go to [facility] Problems Identified/Issues Discussed: pt evaluated, as per record patient has been referred twice to be admitted involuntary for continuity of care as he has made suicidal gesture and continues to request to leave the hospital pt was declined by [facility] for involuntary admission, pt requesting transfer to [facility] to be started on suboxone, discussed with pt tghat will attempt the transfer according to availability of beds advised the patient the need to continue with care as he is at the current time ahigh risk of relapse with possible accidental overdose pt understood the risks versus benefits of posible dischargeagainst medical advise DSM 5 Symptoms Update: substance induced mood disorder opiate abuse continuous Medication Change: Yes (start vistaril) Medical Record Reviewed: Yes Mental Status Examination - Cognitive Function Orientation: Person, Place, Situation, Time Memory: Intact Attention: WNL Concentration: Poor Association: WNL Fund of Knowledge: WNL Decription of patient's judgement and insights: partial insight , poor judgment and poor impulse control - Mood Mood: Depressed, Anxious - Affect Affect: Constricted - Speech Speech: Soft - Formal Thought Process Formal Thought Process: No Impairment, Circumstantial Psychotic Thoughts and Behaviors: pt denied any current psychotic symptoms, non elicited - Suicidal Ideation Suicidal Ideation: Yes - Homicidal Ideation Homicidal Ideation: No Goal/Treatment Plan - Goal/Treatment Plan Need for Continued Stay: Remain at risks for inpatient hospitalization, Severe depression anxiety, Discharge may exacerbated symptoms Progress Toward Problem(s) and Goals/Treatment Plan: pt continues to express active suicidal ideation and intent, had active suicidal attempt trying to hang himself on the unit will continue 1:1 observation for suicide risk pt refusing medications, signed 48 hour notice requesting to be discharged , pt will be referred to be screened for involuntary admission as he continues to have high suicide risk will start trileptal for mood stabilization continue with group, CBT and motivational therapy Estimated Date of D/C: 05/16/18
--- NOTE | 2018-05-13 11:35 | PCM.PYCHDC ---
Mental Status Examination - Mental Status Examination Orientation: Person, Place Memory: Intact Mood: Neutral Affect: Constricted Speech: Appropriate Attention: WNL Concentration: WNL Association: WNL Fund of Knowledge: WNL Formal Thought Process: No Impairment Description of patient's judgement and insight: partial insight , poor judgment Psychotic Thoughts and Behaviors: pt denied any current psychotic symptoms, non elicited Suicidal Ideation: No Current Homicidal Ideation?: No Discharge Summary - Discharge Note Reason for Hospitalization: 2 yo male w/ h/o depression and opioid use disorder, recently treated with Suboxone, presents s/p attempted to overdose on Trazodone pills, states he took 2 pills but was stopped by a friend from taking more. He continues to report feeling depressed and hopeless w/ active suicidal ideation to kill himself by overdose. +Sleep/appetite disturbances. Psychiatric History (includes Medical, Family, Personal Hx): multiple inpatient hospitalizations for detox, Consultations:: List each consultation separately and include: 1. Reason for request. 2. Findings. 3. Follow-up Summary of Hospital Course include:: 1. Description of specific treatment plan utilized for patients during their course of treatmen. 2. Summarize the time- course for resolution of acute symptoms and/or regressed behaviors. 3. Describe issues identified and worked on during hospitalization. 4. Describe medication utilized. 5. Describe medical problems identified and treated. 6. Reassessment of suicide risk Summary of Hospital Course: pt was on the geriatric unit for a week, transferred under my care on 05/12/18 pt had a suicidal attempt on the geriatric unit on 05/11/18 and signed 48hour notice requesting to be discharged pt was referred by Dr Rodriguez for screening for involuntary admission for continuity of care howevere he was declined pt transferred to adult unit on 05/12/18 he continued to express suicidal ideations, pt was placed on 1:1. he continued to request to leave the hospita pt was referred again to be screened for involuntary admission however he was declined by [facility] and found not to meet criteria for involuntary admission Discussed the case with Dr Moreno , supervisor cereal of EPS at [facility], juany reviewed the chart and accordingly continued to find the patient as low risk and does not meet criteria for involuntary commitment pt refused to continue with treatment at [facility] with his 48 hour notice expiring today discussed with patient risks versus benefits of continuing treatment , patient was advised about the risk on discharge of possible relapse and accidental overdose due to lower tolerance pt understood and was able to verbalize risks versus benefits, continued to request being discharged against medical advise pt mental status on discharge/ denied any current suicidal or homicidal ideation , denied perceptual disturbances, no noted changes in sleep or appetite pt will be discharged against medical advise, psych social worker [facility] and pt was scheduled for an appointment 05/14/18 at 7: 00 am - Final Diagnosis (DSM 5) Condition upon Discharge: STABLE Disposition: AGAINST MEDICAL ADVICE Follow-up Treatment Plan: pt continues to express active suicidal ideation and intent, had active suicidal attempt trying to hang himself on the unit will continue 1:1 observation for suicide risk pt refusing medications, signed 48 hour notice requesting to be discharged , pt will be referred to be screened for involuntary admission as he continues to have high suicide risk will start trileptal for mood stabilization continue with group, CBT and motivational therapy - Smoking Cessation Smoking Cessation Medication prescribed: No - Antipsychotic Medications Pt discharged on 2 or more routine antipsychotic medications: No
== END 2018-05-13 15:25 | disposition left against medical advice (07) | DRG 746 ==
LOC: H.ER 20:12 → H.ERHOLD 23:39 → H.STEP 05-07 05:44 → H.PSYCH 05-12 13:16
PROVIDERS: ADMIT Psychiatry & Neurology Psychiatry; ATTEND Psychiatry & Neurology Psychiatry
PROC: HZ52ZZZ Individual Psychotherapy for Substance Abuse Treatment, Cognitive-Behavioral (ICD-10-PCS; principal; 2018-05-06)
PROC: HZ57ZZZ Individual Psychotherapy for Substance Abuse Treatment, Motivational Enhancement (ICD-10-PCS; 2018-05-06)
PROC: GZHZZZZ Group Psychotherapy (ICD-10-PCS; 2018-05-06)
DX: F11.14 Opioid abuse with opioid-induced mood disorder (principal); R56.9 Unspecified convulsions; R44.0 Auditory hallucinations; F17.210 Nicotine dependence, cigarettes, uncomplicated; F32.9 Major depressive disorder, single episode, unspecified; R45.851 Suicidal ideations; Z59.0 Homelessness; Z91.041 Radiographic dye allergy status; Z91.14 Patient's other noncompliance with medication regimen; R79.89 Other specified abnormal findings of blood chemistry; F41.9 Anxiety disorder, unspecified; T43.212A Poisoning by selective serotonin and norepinephrine reuptake inhibitors, intentional self-harm, initial encounter